=== PATIENT | female | born 1975 | race Caucasian/White ===

== ENCOUNTER 2017-11-10 15:41 | Emergency (ER) | payer MEDICAID ==
[~2017-11-10] VITALS: Ht 162.6 cm; Wt 85.0 kg
[2017-11-10 16:34] VITALS: BP 137/75; Ht 162.6 cm; Wt 85.0 kg
[2017-11-10] MEDS ORDERED: FLUTICASONE PRO16 GM NASAL (16:38)
[2017-11-10] MEDS ORDERED: NEXIUM40 MG (16:38)
[2017-11-10] MEDS ORDERED: CLONAZEPAM2 MG/TAB PO (16:39)
[2017-11-10] MEDS ORDERED: PROAIR HFA8.5 GM INH (16:39)
[2017-11-10] MEDS ORDERED: PERCOCET 5-3251 TAB PO (16:39)
[2017-11-10] MEDS ORDERED: LIPITOR80 MG PO (16:40)
[2017-11-10] MEDS ORDERED: REMERON15 MG PO (16:40)
[2017-11-10] MEDS ORDERED: PANCREAZE (16:40)
[2017-11-10] MEDS ORDERED: CYCLOBENZAPRINE10 MG PO (16:41)
[2017-11-10] MEDS ORDERED: TIROSINT50 MCG PO (16:41)
[2017-11-10] MEDS ORDERED: NEURONTIN 300300 MG (16:41)
[2017-11-10] MEDS ORDERED: COREG 3.1253.125 MG PO (16:42)
[2017-11-10] MEDS ORDERED: LINZESS145 MCG PO (16:42)
[2017-11-10] MEDS ORDERED: HYDROXYZINE HCL50 MG PO (16:43)
[2017-11-10] MEDS ORDERED: TRAZODONE HCL150 MG PO (16:43)
[2017-11-10 18:18] LABS: BASOPHILS 0.8 % (0-2); EOSINOPHILS 2.7 % (0-7); HEMATOCRIT 42.4 % (36.0-48.0); HEMOGLOBIN 14.4 g/dL (12-16); IMMATURE GRANULOCYTES 0.5 % (0-5); LYMPHOCYTES 44.8 % (15-50); MCH 31.2 pg (26.0-34.0); MEAN PLATELET VOLUME 9.7 fL (7.4-10.4); NEUTROPHILS 45.2 % (40-80); PLATELET COUNT 234 10x3/uL (130-400); RBC 4.61 10x6/uL (4.00-5.40); RDW 13.9 % (11.5-14.5); WBC 8.6 10x3/uL (4.8-10.8)
[2017-11-10 19:42] LABS: ALBUMIN 3.6 g/dL (3.4-5.0); ALT (SGPT) 73 U/L (10-68); BILIRUBIN - TOTAL 0.22 mg/dL (0.2-1.3); CALC OSMOLALITY 284 mosm/kg (275-300); CALCIUM 8.8 mg/dL (8.5-10.1); CARBON DIOXIDE 25.5 mmol/L (21.0-32.0); CHLORIDE - SERUM 105 mmol/L (98-107); CREATINE KINASE 7 UL (21-215); CREATININE - SERUM 0.8 mg/dL (0.6-1.3); GLUCOSE 78 mg/dL (74-106); POTASSIUM - SERUM 4.4 mmol/L (3.5-5.1); PROTEIN - SERUM 7.4 g/dL (6.4-8.2); SODIUM 145 mmol/L (136-145); UREA NITROGEN 4 mg/dL (7-18); eGFR NON AFRICAN AMERICAN 83 mL/min (90-120)
[2017-11-10 19:47] LABS: TROPONIN-I < 0.017 ng/mL (0.000-0.060)
[2017-11-10 20:02] LABS: ALKALINE PHOSPHATASE 114 U/L (46-116)
== END 2017-11-10 20:37 | disposition left against medical advice (07) ==
LOC: D.ER 15:41
PROVIDERS: Family Medicine
DX: R22.42 Localized swelling, mass and lump, left lower limb (principal); Z86.79 Personal history of other diseases of the circulatory system